=== PATIENT | female | born 1995 | race Caucasian/White ===

== ENCOUNTER 2016-09-02 19:48 | Emergency (ER) | payer BC ==
[~2016-09-02] VITALS: Ht 162.6 cm; Wt 59.9 kg
[2016-09-02 19:51] VITALS: BP 110/72
--- NOTE | 2016-09-02 20:09 | PHYS DOC ---
Past Medical History Past Medical History: No Pertinent History Past Surgical History: No Surgical History Alcohol Use: None Drug Use: None Adult General Chief Complaint Chief Complaint: FLU SYMPTOM HPI HPI Patient is a 21 year old female, who is 13 weeks , this emergency Department today with complaint of runny nose, nonproductive cough, fever and body aches that began 2-3 days ago. Patient reports positive exposure within the home with influenza. Patient also reports increased frequency in urination. She denies dysuria. She denies flank pain, pelvic pain, vaginal bleeding or vaginal discharge. Patient reports that so far, she's had an uncomplicated . She denies any history of heart or lung disease. She denies antibiotic use, foreign travel or hospitalization within the past 90 days. Patient denies taking any antipyretics within the past 24 hours. Review of Systems Review of Systems Constitutional: Denies fever or chills [] Eyes: Denies change in visual acuity, redness, or eye pain [] HENT: Denies nasal congestion or sore throat [] Respiratory: Denies cough or shortness of breath [] Cardiovascular: No additional information not addressed in HPI [] GI: Denies abdominal pain, nausea, vomiting, bloody stools or diarrhea [] : Denies dysuria or hematuria [] Musculoskeletal: Denies back pain or joint pain [] Integument: Denies rash or skin lesions [] Neurologic: Denies headache, focal weakness or sensory changes [] Endocrine: Denies polyuria or polydipsia [] Current Medications Current Medications Current Medications Medications (Trade) Dose Ordered Sig/Mer[place] Start Time Stop Time Status Last Admin Dose Admin Acetaminophen (Tylenol) 650 mg 1X ONCE 09/02/16 20:15 09/02/16 20:16 DC 09/02/16 20:17 650 MG Allergies Allergies Allergies Coded Allergies Type Severity Reaction Last Updated Verified No Known Drug Allergies 01/29/14 No Physical Exam Physical Exam Constitutional: Well developed, well nourished, no acute distress, non-toxic appearance. Patient is febrile. She is ill-appearing. HENT: Normocephalic, atraumatic, bilateral external ears normal, oropharynx moist, no oral exudates, patient's nose trauma from blowing and rubbing. Nasal mucosa is boggy with clear rhinorrhea. Eyes: PERRLA, EOMI, conjunctiva normal, no discharge. [] Neck: Normal range of motion, no tenderness, supple, no stridor. There is no meningismus. There is bilateral anterior and posterior cervical lymphadenopathy. Cardiovascular:Heart rate 108 with regular rhythm, no murmur Lungs & Thorax: There is no respiratory distress respiratory fatigue. There is no posturing or sensory muscle use. Lungs are clear to auscultation bilaterally. Abdomen: Bowel sounds normal, soft, no tenderness, no masses, no pulsatile masses. [] Skin: Warm, dry, no erythema, no rash. [] Back: No tenderness, no CVA tenderness. [] Extremities: No tenderness, no cyanosis, no clubbing, ROM intact, no edema. [] Neurologic: Alert and oriented X 3, normal motor function, normal sensory function, no focal deficits noted. [] Psychologic: Affect normal, judgement normal, mood normal. [] Current Patient Data Vital Signs Vital Signs Date Time Temp Pulse Resp B/P Pulse Ox O2 Delivery O2 Flow Rate FiO2 09/02/16 19:51 100.2 116 22 110/72 100 Room Air 100.2 Lab Values Laboratory Tests Test 09/02/16 20:09 Urine Collection Type Unknown Urine Color Yellow Urine Clarity Cloudy Urine pH 7.0 Urine Specific [place] 1.015 Urine Protein Negativemg/dL (NEG-TRACE) Urine Glucose (UA) Negativemg/dL (NEG) Urine Ketones (Stick) 15mg/dL (NEG) Urine Blood Trace (NEG) Urine Nitrite Negative (NEG) Urine Bilirubin Negative (NEG) Urine Urobilinogen Dipstick 0.2mg/dL (0.2 mg/dL) Urine Leukocyte Esterase Negative (NEG) Urine RBC Occ/HPF (0-2) Urine WBC 1-4/HPF (0-4) Urine Squamous Epithelial Cells Many/LPF Urine Bacteria Many/HPF (0-FEW) Urine Mucus Slight/LPF Influenza Type A Antigen Negative (NEGATIVE) Influenza Type B Antigen Positive (NEGATIVE) EKG EKG [] Radiology/Procedures Radiology/Procedures [] Course & Med Decision Making Course & Med Decision Making Pertinent Labs and Imaging studies reviewed. (See chart for details) [] Dragon Disclaimer Dragon Disclaimer This electronic medical record was generated, in whole or in part, using a voice recognition dictation system. Departure Departure Impression: Primary Impression: Influenza Disposition: HOME, SELF-CARE Condition: STABLE Patient Instructions: Fever, Adult, [id number], Influenza, Adult, Easy-to- Read Additional Instructions: 1. You tested positive for influenza B. Urine test here today shows no evidence of a urinary tract infection. 2. Acetaminophen (Tylenol) every 4-6 hours for the fever and body aches. Drink 8 -10, 10 ounce glasses of non-caffeinated beverage daily. 3. One tablespoon of Metamucil daily while with constipation. 4. Review the discharge instructions provided for self-care and reasons to return to the emergency department. 5. Contact your [facility] rail [facility] office Sunday to schedule follow-up appointment. Scripts Oseltamivir Phosphate (Tamiflu)75 Mg Capsule1 Cap PO BID #10 CAP Prov:CAROLINE CROCKETT 09/02/16 CAROLINE CROCKETT Sep 02, 2016 20:08
[2016-09-02] MEDS ORDERED: ACETAMINOPHEN 325 MG TABLET. PO ONE (20:15)
[2016-09-02 20:18] LABS: BILIRUBIN,URINE NEGATIVE (NEG); GLUCOSE,URINE NEGATIVE (NEG); NITRITE,URINE NEGATIVE (NEG); PROTEIN,URINE NEGATIVE (NEG-TRACE); UROBILINOGEN,URINE 0.2 mg/dL (0.2 mg/dL)
[2016-09-02 20:23] LABS: RBC,URINE OCC /HPF (0-2)
[2016-09-02 20:24] LABS: BACTERIA,URINE MANY /HPF (0-FEW); SQUAMOUS EPITHELIAL CELL,UR MANY /LPF
[2016-09-02 20:41] LABS: OBC FLU VALID
[2016-09-02] MEDS ORDERED: OSEL75CA PO (20:47)
== END 2016-09-02 20:55 | disposition home or self-care (01) ==
LOC: ER 19:48
DX: O99.511 Diseases of the respiratory system complicating pregnancy, first trimester (principal); J10.1 Influenza due to other identified influenza virus with other respiratory manifestations; O26.891 Other specified pregnancy related conditions, first trimester; R35.0 Frequency of micturition; Z3A.13 13 weeks gestation of pregnancy
CPT/HCPCS: 81001; 87086; 87804; 99284-25